=== PATIENT | female | born 1935 | race African-American/Black ===

== ENCOUNTER 2020-08-09 15:23 | Observation (INO) ==
[2020-08-09] MEDS ORDERED: SODIUM CHLORIDE 0.9% 1,000 ML IV STA (16:28)
[2020-08-09] MEDS ORDERED: ONDANSETRON 4 MG/2 ML VIAL IV ONE (16:29)
[2020-08-09 16:47] LABS: Basophils % 0.5 % (0.0-0.8); Eosinophils % 0.7 % (0.00-10.9); Hematocrit 29.6 VOL% (35.7-47.0); Hemoglobin 9.6 GM/DL (12.0-16.0); Immature Granulocytes % 0.5 %; Immature Granulocytes Absolute 0.02 #; Lymphocytes # 0.6 10*3/uL (1.4-4.0); Mean Corpuscular HGB Conc 32.4 GM/DL (32-36); Mean Corpuscular Volume 91.1 FL (87-102); Mean Platelet Volume 10.5 FL (9.6-12.0); Neutrophils % 70.3 % (38.7-73.9); Platelet Count 178 T/CUMM (130-400); Red Blood Count 3.25 MC/CUMM (3.8-5.5); White Blood Count 4.4 T/CUMM (4-12)
[2020-08-09 16:57] LABS: PT Patient Result 10.3 SECS (9.8-11.9)
[2020-08-09 17:01] LABS: Bilirubin,Urine Negative (Negative); Blood, Urine Small mg/dL (Negative); Glucose,Urine (UA) Negative (Negative); Ketones,Urine Negative (Negative); Nitrite,Urine Negative (Negative); Protein,Urine 100 MG/DL; RBC,Urine 1 /HPF (0-4); Squamous Epithelial Cell,Urine Occasional /HPF (0-10); Urine Appearance Slightly Hazy (Clear); Urine Color Yellow (Yellow); Urine Specific Gravity 1.011 (1.001-1.035); Urine Urobilinogen < 2.0 EU/DL (0.2-1.0); WBC,Urine <1 /HPF (0-6)
[2020-08-09 17:28] LABS: Bilirubin,Total 0.4 MG/DL (0.2-1.0); Calcium 8.9 MG/DL (8.5-10.1); Osmolality,Calculated 299.6 MOS/KG (273-304); Total Protein 7.2 G/DL (6.4-8.3)
[2020-08-09 17:51] LABS: Band Neutrophils 4 % (0-10); Lymphocytes 13 % (20-55); Segmented Neutrophils 69 % (50-85); Total Cells Counted 100
[2020-08-09 17:52] LABS: Anisocytosis Slight; Microcytosis Slight; Platelet Estimate Adequate
[2020-08-09] MEDS ORDERED: PIPERACILLIN/TAZOBACTAM 3,375 MG in SODIUM CHLORIDE 0.9% 100 ML IV STA (18:21)
[2020-08-09] MEDS ORDERED: ONDANSETRON 4 MG/2 ML VIAL IV PRN (18:25)
[2020-08-09] MEDS ORDERED: MORPHINE 4 MG/1 ML VIAL IV PRN (18:25)
[2020-08-09] MEDS ORDERED: DEXTROSE 50% 25 GM/50 ML VIAL IV PRN (20:37)
[2020-08-09] MEDS ORDERED: GLUCAGON 1 MG VIAL IM PRN (20:37)
[2020-08-09] MEDS: PIPERACILLIN/TAZOBACTAM 3,375 MG in SODIUM CHLORIDE 0.9% 100 ML IV SCH (22:50)
[2020-08-10] MEDS: DEXTROSE 5% NACL 0.45% 1,000 ML IV SCH ×4 (00:28→18:31)
[2020-08-10] MEDS: INSULIN REGULAR 100 UNIT/ML SUBCUT SCH ×4 (00:33→17:23)
[2020-08-10] MEDS: PIPERACILLIN/TAZOBACTAM 3,375 MG in SODIUM CHLORIDE 0.9% 100 ML IV SCH ×2 (03:02→11:51)
[2020-08-10 06:29] LABS: Basophils % 0.4 % (0.0-0.8); Eosinophils # 0.3 10*3/uL (0.0-0.87); Hematocrit 27.4 VOL% (35.7-47.0); Hemoglobin 8.8 GM/DL (12.0-16.0); Immature Granulocytes % 1.3 %; Immature Granulocytes Absolute 0.09 #; Lymphocytes # 0.9 10*3/uL (1.4-4.0); Lymphocytes % 13.5 % (21.3-54.2); Mean Corpuscular HGB Conc 32.1 GM/DL (32-36); Mean Corpuscular Volume 92.3 FL (87-102); Mean Platelet Volume 11.3 FL (9.6-12.0); Neutrophils % 68.8 % (38.7-73.9); Platelet Count 173 T/CUMM (130-400); Red Blood Count 2.97 MC/CUMM (3.8-5.5); Red Cell Distribution Width 13.2 % (9.3-17.3); White Blood Count 6.8 T/CUMM (4-12)
[2020-08-10 06:46] LABS: Albumin 2.7 G/DL (3.4-5.0); Bilirubin,Total 0.7 MG/DL (0.2-1.0); Calcium 8.4 MG/DL (8.5-10.1); Osmolality,Calculated 300.3 MOS/KG (273-304); Total Protein 6.3 G/DL (6.4-8.3)
[2020-08-10 06:58] LABS: Band Neutrophils 19 % (0-10); Eosinophils 8 % (0-10); Lymphocytes 16 % (20-55); Myelocytes 1 %; Platelet Estimate Normal; Segmented Neutrophils 46 % (50-85); Total Cells Counted 100
[2020-08-10 06:59] LABS: Anisocytosis Slight; Macrocytosis 1+
[2020-08-10] MEDS ORDERED: MORPHINE 4 MG/1 ML VIAL IV PRN ×2 (08:31)
[2020-08-10] MEDS ORDERED: BUPIVACAINE MPF 0.25% 30 ML VIAL ONE (08:33)
[2020-08-10] MEDS ORDERED: TISSUE ADHESIVE 1 EACH APPLICATOR TOP ONE (08:33)
[2020-08-10] MEDS ORDERED: LIDOCAINE 1% 20 ML VIAL ONE (08:34)
[2020-08-10] MEDS: METOPROLOL SUCCINATE XL 50 MG TABLET PO SCH (09:00)
[2020-08-10] MEDS ORDERED: INFLUENZA VIRUS VACCINE 0.5 ML SYRINGE IM ONE (09:00)
[2020-08-10] MEDS: PANTOPRAZOLE 40 MG VIAL IV SCH (09:00)
[2020-08-10] MEDS ORDERED: fentaNYL 100 MCG/2 ML VIAL ONE (10:30)
[2020-08-10] MEDS ORDERED: SUGAMMADEX 200 MG/2 ML VIAL IV ONE (10:31)
[2020-08-10] MEDS ORDERED: LABETALOL 100 MG/20 ML VIAL IV ONE (10:42)
[2020-08-10] MEDS ORDERED: LIDOCAINE 2% 5 ML VIAL ONE (10:42)
[2020-08-10] MEDS ORDERED: ESMOLOL 100 MG/10 ML VIAL IV ONE (10:42)
[2020-08-10] MEDS ORDERED: propofoL 200 MG/20 ML VIAL IV ONE (10:42)
[2020-08-10] MEDS ORDERED: GLYCOPYRROLATE 0.4 MG/2 ML VIAL ONE (10:42)
[2020-08-10] MEDS ORDERED: SEVOFLURANE 1 UNIT/15 MINUTE INH ONE (10:42)
[2020-08-10] MEDS ORDERED: LACTATED RINGERS 1,000 ML IV ONE (10:43)
[2020-08-10] MEDS ORDERED: SUCCINYLCHOLINE 200 MG/10 ML VIAL ONE (10:43)
[2020-08-10] MEDS ORDERED: NEOSTIGMINE 10 MG/10 ML VIAL ONE (10:43)
[2020-08-10] MEDS ORDERED: ETOMIDATE 40 MG/20 ML VIAL IV ONE (10:43)
[2020-08-10] MEDS ORDERED: ROCURONIUM 100 MG/10 ML VIAL IV ONE (10:43)
[2020-08-10] MEDS ORDERED: ONDANSETRON 4 MG/2 ML VIAL ONE (10:45)
[2020-08-10] MEDS ORDERED: ONDANSETRON 4 MG/2 ML VIAL IV PRN ×2 (10:49→14:06)
[2020-08-10] MEDS ORDERED: HYDROmorphone 2 MG/1 ML VIAL IV PRN (10:49)
[2020-08-10] MEDS ORDERED: HYDROmorphone 2 MG/1 ML VIAL ONE (10:51)
[2020-08-10] MEDS ORDERED: BISACODYL 5 MG TABLET PO PRN (14:06)
[2020-08-10] MEDS ORDERED: ALBUTEROL/IPRATROPIUM 3 ML NEB RESP TX PRN (14:06)
[2020-08-10] MEDS ORDERED: ACETAMINOPHEN 325 MG TABLET PO PRN (14:06)
[2020-08-10] MEDS: cefOXitin 2,000 MG in SYRINGE 1 EACH IV SCH (18:21)
[2020-08-11] MEDS: INSULIN REGULAR 100 UNIT/ML SUBCUT SCH ×4 (00:44→17:41)
[2020-08-11] MEDS: cefOXitin 2,000 MG in SYRINGE 1 EACH IV SCH ×2 (00:45→06:31)
[2020-08-11] MEDS: DEXTROSE 5% NACL 0.45% 1,000 ML IV SCH ×2 (03:15→10:55)
[2020-08-11 07:03] LABS: Basophils % 0.1 % (0.0-0.8); Eosinophils # 0.2 10*3/uL (0.0-0.87); Eosinophils % 2.6 % (0.00-10.9); Hematocrit 27.8 VOL% (35.7-47.0); Hemoglobin 8.8 GM/DL (12.0-16.0); Immature Granulocytes % 0.9 %; Immature Granulocytes Absolute 0.08 #; Lymphocytes # 0.9 10*3/uL (1.4-4.0); Lymphocytes % 9.9 % (21.3-54.2); Mean Corpuscular HGB Conc 31.7 GM/DL (32-36); Mean Corpuscular Volume 92.4 FL (87-102); Mean Platelet Volume 11.1 FL (9.6-12.0); Monocytes % 4.6 % (1.7-12.7); Neutrophils % 81.9 % (38.7-73.9); Platelet Count 157 T/CUMM (130-400); Red Blood Count 3.01 MC/CUMM (3.8-5.5); Red Cell Distribution Width 13.3 % (9.3-17.3); White Blood Count 9.1 T/CUMM (4-12)
[2020-08-11 07:17] LABS: Albumin 2.3 G/DL (3.4-5.0); Bilirubin,Total 0.6 MG/DL (0.2-1.0); Calcium 8.2 MG/DL (8.5-10.1); Osmolality,Calculated 291.8 MOS/KG (273-304); Total Protein 6.1 G/DL (6.4-8.3)
[2020-08-11 07:28] LABS: Eosinophils 1 % (0-10); Lymphocytes 4 % (20-55); Segmented Neutrophils 92 % (50-85); Total Cells Counted 100
[2020-08-11 07:30] LABS: Hypochromasia 1+; Microcytosis 1+; Platelet Estimate Adequate
[2020-08-11] MEDS: METOPROLOL SUCCINATE XL 50 MG TABLET PO SCH (08:45)
[2020-08-11] MEDS: PANTOPRAZOLE 40 MG VIAL IV SCH (08:46)
[2020-08-11] MEDS ORDERED: LACTATED RINGERS 500 ML IV ONE (09:58)
[2020-08-11] MEDS: PIPERACILLIN/TAZOBACTAM 3,375 MG in SODIUM CHLORIDE 0.9% 100 ML IV SCH ×2 (12:11→23:10)
[2020-08-12] MEDS: DEXTROSE 5% NACL 0.45% 1,000 ML IV SCH ×4 (03:38→14:02)
[2020-08-12] MEDS: INSULIN REGULAR 100 UNIT/ML SUBCUT SCH ×4 (03:39→18:41)
[2020-08-12 06:08] LABS: Basophils % 0.2 % (0.0-0.8); Eosinophils # 0.4 10*3/uL (0.0-0.87); Eosinophils % 3.4 % (0.00-10.9); Hematocrit 23.6 VOL% (35.7-47.0); Immature Granulocytes % 0.9 %; Immature Granulocytes Absolute 0.12 #; Lymphocytes # 1.2 10*3/uL (1.4-4.0); Mean Corpuscular HGB Conc 33.5 GM/DL (32-36); Mean Corpuscular Volume 91.5 FL (87-102); Mean Platelet Volume 10.9 FL (9.6-12.0); Neutrophils % 82.5 % (38.7-73.9); Platelet Count 150 T/CUMM (130-400); Red Blood Count 2.58 MC/CUMM (3.8-5.5); Red Cell Distribution Width 13.4 % (9.3-17.3); White Blood Count 12.8 T/CUMM (4-12)
[2020-08-12 06:10] LABS: Hemoglobin 7.9 GM/DL (12.0-16.0)
[2020-08-12 06:17] LABS: Calcium 8.1 MG/DL (8.5-10.1); Osmolality,Calculated 288.8 MOS/KG (273-304)
[2020-08-12 06:20] LABS: Eosinophils 2 % (0-10); Lymphocytes 11 % (20-55); Platelet Estimate Adequate; Segmented Neutrophils 85 % (50-85); Total Cells Counted 100
[2020-08-12 06:21] LABS: Hypochromasia 2+; Microcytosis 1+
[2020-08-12] MEDS: METOPROLOL SUCCINATE XL 50 MG TABLET PO SCH (09:30)
[2020-08-12] MEDS: PANTOPRAZOLE 40 MG VIAL IV SCH (09:31)
[2020-08-12] MEDS ORDERED: MAGNESIUM SULF RIDER 2 GM in PREMIX 1 EACH IV PRN (10:52)
[2020-08-12] MEDS ORDERED: MAGNESIUM SULF RIDER 4 GM in PREMIX 1 EACH IV PRN (10:52)
[2020-08-12] MEDS ORDERED: POTASSIUM CHLORIDE 20 MEQ TABLET PO ONE (12:00)
[2020-08-12] MEDS: PIPERACILLIN/TAZOBACTAM 3,375 MG in SODIUM CHLORIDE 0.9% 100 ML IV SCH (12:13)
[2020-08-13] MEDS: PIPERACILLIN/TAZOBACTAM 3,375 MG in SODIUM CHLORIDE 0.9% 100 ML IV SCH (01:32)
[2020-08-13] MEDS: INSULIN REGULAR 100 UNIT/ML SUBCUT SCH ×2 (01:45→06:58)
[2020-08-13 06:03] LABS: Basophils % 0.2 % (0.0-0.8); Eosinophils # 0.4 10*3/uL (0.0-0.87); Eosinophils % 2.9 % (0.00-10.9); Hematocrit 25.9 VOL% (35.7-47.0); Hemoglobin 8.5 GM/DL (12.0-16.0); Immature Granulocytes % 0.9 %; Immature Granulocytes Absolute 0.11 #; Mean Corpuscular HGB Conc 32.8 GM/DL (32-36); Mean Corpuscular Volume 92.2 FL (87-102); Mean Platelet Volume 10.6 FL (9.6-12.0); Platelet Count 168 T/CUMM (130-400); Red Blood Count 2.81 MC/CUMM (3.8-5.5); Red Cell Distribution Width 13.4 % (9.3-17.3); White Blood Count 12.8 T/CUMM (4-12)
[2020-08-13 06:20] LABS: Calcium 8.1 MG/DL (8.5-10.1); Osmolality,Calculated 288.7 MOS/KG (273-304)
[2020-08-13 06:28] LABS: Eosinophils 2 % (0-10); Hypochromasia 2+; Lymphocytes 6 % (20-55); Microcytosis Slight; Platelet Estimate Adequate; Segmented Neutrophils 89 % (50-85); Total Cells Counted 100
[2020-08-13] MEDS: DEXTROSE 5% NACL 0.45% 1,000 ML IV SCH (06:58)
[2020-08-13] MEDS: METOPROLOL SUCCINATE XL 50 MG TABLET PO SCH (08:53)
[2020-08-13] MEDS: PANTOPRAZOLE 40 MG VIAL IV SCH (09:05)
[2020-08-13 09:55] LABS: Troponin I < 0.015 NG/ML (0.00-0.045)
[2020-08-13 11:26] VITALS: BP 150/46
== END 2020-08-13 13:28 | disposition home health service (06) ==
LOC: EDUNIT# → EDBD → N.ED 15:23 → N.EDINP 15:23 → N.3E 19:56
PROVIDERS: ADMIT Surgery; ATTEND Surgery

== ENCOUNTER 2022-09-13 17:21 | Inpatient (IN) ==
[2022-09-13] MEDS ORDERED: ONDANSETRON 4 MG/2 ML VIAL IV ONE (17:56)
[2022-09-13 18:02] LABS: Basophils % 0.1 % (0.0-0.8); Eosinophils # 0.2 10*3/uL (0.0-0.87); Eosinophils % 2.4 % (0.00-10.9); Hematocrit 25.8 VOL% (35.7-47.0); Immature Granulocytes % 0.5 %; Immature Granulocytes Absolute 0.05 #; Lymphocytes # 1.3 10*3/uL (1.4-4.0); Lymphocytes % 13.9 % (21.3-54.2); Mean Corpuscular Volume 98.1 FL (87-102); Mean Platelet Volume 10.9 FL (9.6-12.0); Monocytes # 0.6 10*3/uL (0.11-0.8); Monocytes % 6.5 % (1.7-12.7); Neutrophils % 76.6 % (38.7-73.9); Platelet Count 142 T/CUMM (130-400); Red Blood Count 2.63 MC/CUMM (3.8-5.5); Red Cell Distribution Width 13.1 % (9.3-17.3); White Blood Count 9.2 T/CUMM (4-12)
[2022-09-13 18:17] LABS: Bilirubin,Total 0.4 MG/DL (0.20-1.00); Calcium 9.2 MG/DL (8.5-10.1); Osmolality,Calculated 296.1 MOS/KG (273-304); Potassium 4.9 MMOL/L (3.5-5.1); Total Protein 7.1 G/DL (6.4-8.2)
[2022-09-13 18:46] LABS: Bacteria,Urine Occasional /HPF (Few); Mucus,Urine Occasional /LPF (Occasional); RBC,Urine 1 /HPF (0-4); Squamous Epithelial Cell,Urine Occasional /HPF (0-10)
[2022-09-13 19:06] LABS: Glucose,Urine (UA) Negative (Negative); Ketones,Urine Negative (Negative); Protein,Urine >=300 mg/dL (Negative); Urine Appearance Clear (Clear); Urine Color Yellow (Yellow); Urine Specific Gravity 1.025 (1.001-1.035); Urine pH 5.5 (4.5-8.0)
[2022-09-13 19:07] LABS: Bilirubin,Urine Negative (Negative); Nitrite,Urine Negative (Negative)
[2022-09-13 19:08] LABS: Blood, Urine Trace mg/dL (Negative); Urine Urobilinogen 0.2 eU/dL (<2.0)
[2022-09-13] MEDS ORDERED: hydrALAZINE 20 MG/1 ML VIAL IV STA (20:28)
[2022-09-13] MEDS ORDERED: ONDANSETRON 4 MG/2 ML VIAL IV PRN (21:08)
[2022-09-13] MEDS: LACTATED RINGERS 1,000 ML IV SCH (22:16)
[2022-09-14] MEDS: INSULIN LISPRO 100 UNIT/ML SUBCUT SCH ×4 (01:24→18:29)
[2022-09-14 05:39] LABS: Basophils % 0.1 % (0.0-0.8); Eosinophils # 0.1 10*3/uL (0.0-0.87); Eosinophils % 1.1 % (0.00-10.9); Hematocrit 25.1 VOL% (35.7-47.0); Immature Granulocytes % 0.3 %; Immature Granulocytes Absolute 0.03 #; Lymphocytes # 1.4 10*3/uL (1.4-4.0); Lymphocytes % 15.5 % (21.3-54.2); Mean Corpuscular HGB Conc 31.9 GM/DL (32-36); Mean Corpuscular Volume 94.7 FL (87-102); Mean Platelet Volume 10.7 FL (9.6-12.0); Monocytes # 0.6 10*3/uL (0.11-0.8); Monocytes % 6.6 % (1.7-12.7); Neutrophils % 76.4 % (38.7-73.9); Platelet Count 135 T/CUMM (130-400); Red Blood Count 2.65 MC/CUMM (3.8-5.5); Red Cell Distribution Width 13.2 % (9.3-17.3); White Blood Count 8.8 T/CUMM (4-12)
[2022-09-14 05:52] LABS: Calcium 9.1 MG/DL (8.5-10.1); Osmolality,Calculated 297.8 MOS/KG (273-304); Potassium 4.9 MMOL/L (3.5-5.1)
[2022-09-14 06:01] LABS: Platelet Estimate Adequate
[2022-09-14] MEDS: hydrALAZINE 20 MG/1 ML VIAL IV PRN (07:03)
[2022-09-14] MEDS: ASPIRIN CHEW 81 MG TABLET PO SCH (11:19)
[2022-09-14] MEDS: amLODIPine 5 MG TABLET PO SCH (11:19)
[2022-09-14] MEDS: METOPROLOL SUCCINATE XL 100 MG TABLET PO SCH (11:19)
[2022-09-14] MEDS: PANTOPRAZOLE 40 MG TABLET PO SCH (11:19)
[2022-09-14] MEDS: LACTATED RINGERS 1,000 ML IV SCH (21:22)
[2022-09-15] MEDS: INSULIN LISPRO 100 UNIT/ML SUBCUT SCH ×4 (00:45→17:51)
[2022-09-15] MEDS: ASPIRIN CHEW 81 MG TABLET PO SCH (09:06)
[2022-09-15] MEDS: PANTOPRAZOLE 40 MG TABLET PO SCH (09:06)
[2022-09-15] MEDS: amLODIPine 5 MG TABLET PO SCH (09:06)
[2022-09-15] MEDS: METOPROLOL SUCCINATE XL 100 MG TABLET PO SCH (09:06)
[2022-09-15] MEDS: SODIUM CHLORIDE 0.9% 1,000 ML IV SCH (12:26)
[2022-09-15] MEDS: ACETAMINOPHEN 325 MG TABLET PO PRN (16:00)
[2022-09-15] MEDS: HEPARIN 5,000 UNIT/1 ML VIAL SUBCUT SCH (21:27)
[2022-09-16] MEDS: INSULIN LISPRO 100 UNIT/ML SUBCUT SCH ×5 (00:24→23:26)
[2022-09-16] MEDS: hydrALAZINE 20 MG/1 ML VIAL IV PRN ×2 (00:46→08:52)
[2022-09-16] MEDS: SODIUM CHLORIDE 0.9% 1,000 ML IV SCH ×2 (01:44→14:52)
[2022-09-16] MEDS: ACETAMINOPHEN 325 MG TABLET PO PRN (01:51)
[2022-09-16 04:51] LABS: Basophils % 0.3 % (0.0-0.8); Eosinophils # 0.3 10*3/uL (0.0-0.87); Eosinophils % 4.8 % (0.00-10.9); Hematocrit 23.8 VOL% (35.7-47.0); Hemoglobin 7.6 GM/DL (12.0-16.0); Immature Granulocytes % 0.3 %; Immature Granulocytes Absolute 0.02 #; Lymphocytes # 1.1 10*3/uL (1.4-4.0); Lymphocytes % 17.7 % (21.3-54.2); Mean Corpuscular HGB Conc 31.9 GM/DL (32-36); Mean Corpuscular Volume 95.6 FL (87-102); Mean Platelet Volume 10.4 FL (9.6-12.0); Monocytes # 0.5 10*3/uL (0.11-0.8); Monocytes % 8.4 % (1.7-12.7); Neutrophils % 68.5 % (38.7-73.9); Platelet Count 137 T/CUMM (130-400); Red Blood Count 2.49 MC/CUMM (3.8-5.5); Red Cell Distribution Width 13.2 % (9.3-17.3)
[2022-09-16 05:16] LABS: % Iron Saturation 14.1 % (18-50)
[2022-09-16 05:23] LABS: Calcium 8.4 MG/DL (8.5-10.1); Osmolality,Calculated 295.7 MOS/KG (273-304); Potassium 4.3 MMOL/L (3.5-5.1)
[2022-09-16 05:56] LABS: Platelet Estimate Adequate
[2022-09-16 05:57] LABS: Anisocytosis 1+
[2022-09-16] MEDS: PANTOPRAZOLE 40 MG TABLET PO SCH (08:52)
[2022-09-16] MEDS: amLODIPine 10 MG TABLET PO SCH (08:52)
[2022-09-16] MEDS: METOPROLOL SUCCINATE XL 100 MG TABLET PO SCH (08:52)
[2022-09-16] MEDS: HEPARIN 5,000 UNIT/1 ML VIAL SUBCUT SCH ×2 (08:52→21:20)
[2022-09-16] MEDS: ASPIRIN CHEW 81 MG TABLET PO SCH (08:52)
[2022-09-16] MEDS ORDERED: hydrALAZINE 20 MG/1 ML VIAL IV PRN (11:46)
[2022-09-16 20:07] LABS: Folate 10.05 NG/ML (5.38-24.0)
[2022-09-17] MEDS ORDERED: HALOPERIDOL 5 MG/ML AMP IM ONE (03:15)
[2022-09-17 06:50] LABS: Basophils % 0.4 % (0.0-0.8); Eosinophils # 0.2 10*3/uL (0.0-0.87); Eosinophils % 5.1 % (0.00-10.9); Hematocrit 24.5 VOL% (35.7-47.0); Hemoglobin 7.6 GM/DL (12.0-16.0); Immature Granulocytes % 0.4 %; Immature Granulocytes Absolute 0.02 #; Lymphocytes # 1.3 10*3/uL (1.4-4.0); Lymphocytes % 26.6 % (21.3-54.2); Mean Corpuscular Volume 99.2 FL (87-102); Mean Platelet Volume 10.9 FL (9.6-12.0); Monocytes # 0.5 10*3/uL (0.11-0.8); Neutrophils % 56.5 % (38.7-73.9); Platelet Count 139 T/CUMM (130-400); Red Blood Count 2.47 MC/CUMM (3.8-5.5); Red Cell Distribution Width 13.2 % (9.3-17.3); White Blood Count 4.7 T/CUMM (4-12)
[2022-09-17] MEDS: SODIUM CHLORIDE 0.9% 1,000 ML IV SCH (07:01)
[2022-09-17 07:11] LABS: Calcium 8.4 MG/DL (8.5-10.1); Osmolality,Calculated 293.8 MOS/KG (273-304); Potassium 4.4 MMOL/L (3.5-5.1)
[2022-09-17 07:13] LABS: Eosinophils 6 % (0-10); Hypochromia 1+; Lymphocytes 29 % (20-55); Platelet Estimate Normal; Total Cells Counted 100
[2022-09-17] MEDS: INSULIN LISPRO 100 UNIT/ML SUBCUT SCH ×2 (07:25→13:35)
[2022-09-17] MEDS: ASPIRIN CHEW 81 MG TABLET PO SCH (08:35)
[2022-09-17] MEDS: amLODIPine 10 MG TABLET PO SCH (08:35)
[2022-09-17] MEDS: PANTOPRAZOLE 40 MG TABLET PO SCH (08:35)
[2022-09-17] MEDS: METOPROLOL SUCCINATE XL 100 MG TABLET PO SCH (08:35)
[2022-09-17] MEDS: HEPARIN 5,000 UNIT/1 ML VIAL SUBCUT SCH (08:35)
[2022-09-17 12:53] VITALS: BP 145/65
== END 2022-09-17 15:18 | disposition home health service (06) | DRG 389 ==
LOC: N.ED 17:21 → N.3E 17:21 → SUATTDRO 21:08 → N.3E 23:23 → SUATTDRO 09-15 13:40
PROVIDERS: ADMIT Internal Medicine Geriatric Medicine; ATTEND Internal Medicine